=== PATIENT | female | born 1940 | race Caucasian/White ===

== ENCOUNTER 2020-08-02 08:03 | Emergency (ER) | payer MEDICARE ==
[~2020-08-02] VITALS: Ht 149.9 cm; Wt 53.1 kg
[~2020-08-02 08:03] MED LIST: ASPIR 8181 MG PO; BISOPROLOL FUMAR5 MG PO; FOSAMAX70 MG PO; OSTEO BI-FLEX1 EAC2 PO; ZOCOR20 MG PO
[2020-08-02] MEDS ORDERED: HYDROCODONE/APAP 5MG-325MG TAB PO ONE (08:30)
[2020-08-02] MEDS ORDERED: KETOROLAC TROMETHAMINE 30 MG/ML VIAL IM ONE (08:30)
[2020-08-02] MEDS ORDERED: LIDOCAINE 4% PATCH TP ONE (08:30)
--- NOTE | 2020-08-02 08:43 | Emergency Department Note ---
History of Present Illnes History of Present Illness Chief Complaint: General Medicine Complaints History of Present Illness This is a 80 year old female pt came in via POV for c/o back pain, pt states that pain started on her right thigh and now radiating to the right leg with associated numbness, no unifocal deficits noted, pt uses a walker to ambulate but has a steady gait otherwise. 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 Any updates have been documented here. Past Medical History Recent Fever: No Clinical Suspicion of Infectio: No New/Unexplained Change in Ment: No Past Medical History: Depression, GERD Other Medical History: HIGH CHOLESTEROL, OSTEOPOROSIS, ARTHRITIS Other Surgery: HEMORRHOIDECTOMY,M BREAST BIOPSY Social History Smoking Cessation: Never Smoker Counseling Performed: No Alcohol Use: None Any Illegal Drug Use: No TB Exposure/Symptoms: No Physically hurt or threatened: No Family History Family history of heart diseas: No Other Last Tetanus: 2010 Any Pre-Existing Lines (PICC,: No Review of Systems Review of Systems Constitutional: Reports no symptoms EENTM: Reports no symptoms Cardiovascular: Reports no symptoms Respiratory: Reports no symptoms Gastrointestinal: Reports no symptoms Genitourinary: Reports no symptoms Musculoskeletal: Reports as per HPI, Reports back pain Integumentary: Reports no symptoms Neurological: Reports numbness, Reports paresthesia (right foot) Psychological: Reports no symptoms Endocrine: Reports no symptoms Hematological/Lymphatic: Reports no symptoms Physical Exam Related Data Allergies: Coded Allergies: propoxyphene HCl (Unverified Allergy, Unknown, 08/02/20) propoxyphene napsylate (Unverified Allergy, Unknown, 08/02/20) Triage Vital Signs Vital Signs Date Time Temp Pulse Resp B/P (MAP) Pulse Ox O2 Delivery O2 Flow Rate FiO2 08/02/20 08:11 98.1 82 18 142/73 98 Room Air Vital signs reviewed: Yes Physical Exam CONSTITUTIONAL Constitutional: Present well-developed, Present well-nourished HENT HENT: Present normocephalic, Present atraumatic, Present oropharynx clear/moist, Present nose normal HENT L/R: Present left ext ear normal, Present right ext ear normal EYES Eyes: Reports PERRL, Reports conjunctivae normal NECK Neck: Present ROM normal PULMONARY Pulmonary: Present effort normal, Present breath sounds normal CARDIOVASCULAR Cardiovascular: Present regular rhythm, Present heart sounds normal, Present capillary refill normal, Present normal rate, Present palpable pulses, Present strong pulses (= bilat DP/PT, good cap refill) GASTROINTESTINAL Abdominal: Present soft, Present nontender, Present bowel sounds normal GENITOURINARY Genitourinary: Present exam deferred SKIN Skin: Present warm, Present dry MUSCULOSKELETAL Musculoskeletal: Present ROM normal, Present tenderness (mild tenderness right SI joint area), Present other (SLR + at 45 degrees on right, motor intact) NEUROLOGICAL Neurological: Present alert, Present oriented x 3, Present DTRs normal, Present sensory deficit (slight decr touch sens at right foot); Absent cranial nerve deficit PSYCHOLOGICAL Psychological: Present mood/affect normal, Present judgement normal Assessment & Plan Medical Decision Making MDM sciatica, no trauma/heavy lifting - saw PCP at [facility] and has appt with spine MD at [facility] in ~ 2wks - pain control, F/U Reassessment Reassessment DC home, Lidoderm patches, Medrol dose severiano, pt also has Meloxicam & Gabapentin, RTED prn, discussed sx's of cauda equina etc Assessment & Plan Final Impression: (1) Sciatica Depart Disposition: HOME, SELF-CARE Last Vital Signs Date Time Temp Pulse Resp B/P (MAP) Pulse Ox O2 Delivery O2 Flow Rate FiO2 08/02/20 08:11 98.1 82 18 142/73 98 Room Air Home Meds Reported Medications Glucosamine/D3/Boswellia Susan (OSTEO BI-FLEX CAPLET) 1 Each Tablet, 2 TAB PO DAILY 03/22/13 Aspirin (ASPIR 81) 81 Mg Tablet.dr, 81 MG PO DAILY 03/22/13 Alendronate Sodium (FOSAMAX) 70 Mg Tablet, 70 MG PO WEEKLY 03/22/13 Simvastatin (ZOCOR) 20 Mg Tablet, 40 MG PO BEDTIME 03/22/13 Bisoprolol Fumarate (BISOPROLOL FUMARATE) 5 Mg Tablet, 2.5 MG PO BEDTIME 03/22/13 Medications in the ED Ketorolac Tromethamine 30 mg ONCE ONCE IM ; Start 08/02/20 at 08:30; Stop 08/02/20 at 08:32; Status DC Acetaminophen/ Hydrocodone Bitart 1 ea ONCE ONCE PO ; Start 08/02/20 at 08:30; Stop 08/02/20 at 08:33; Status DC Lidocaine 1 ea NOW ONCE TP ; Start 08/02/20 at 08:30; Stop 08/02/20 at 08:32; Status DC TRICIA MEDRANO MD Aug 02, 2020 08:43
--- OUTSIDE RECORDS SUMMARY | 2020-08-03 19:29 | XMS REPORT | Clinical Summary ---
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 Name Role Phone Parag Anderson MD PCP Allergies Not on File Medications Not on file Active Problems Not on file Social History Date Tobacco Use Types Packs/Day Years Used Never Assessed Sex Assigned at Date Recorded Not on file Last Filed Vital Signs Not on file Plan of Treatment Health Maintenance Due Date Last Done Comments SHINGLES VACCINES (#1) 1991 65+ PNEUMOCOCCAL VACCINE 2006 (1 of 1 - PPSV23) INFLUENZA VACCINE 04/29/2020 Results Not on fileafter 08/02/2019 Insurance Type Payer Benefit Subscriber ID Effective Phone Address Plan / Dates Group Commercial AARP AARP [id number] 2016-P SUPPLEMENT resent Medicare MEDICARE MEDICARE [id number] 2006-P FIONA, PART A AND resent [place] B Advance Directives For more information, please contact: [phone] Patient Shareholder Explanation Type Date Recorded Advance Directives, Living Will and 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
== END 2020-08-02 10:36 | disposition home or self-care (01) ==
LOC: ER 08:15
DX: M54.41 Lumbago with sciatica, right side (principal); K21.9 Gastro-esophageal reflux disease without esophagitis; F32.9 Major depressive disorder, single episode, unspecified; E78.00 Pure hypercholesterolemia, unspecified
CPT/HCPCS: 99283; J1885

== ENCOUNTER 2020-12-16 10:06 | Emergency (ER) | payer MEDICARE ==
[~2020-12-16] VITALS: Ht 149.9 cm; Wt 53.1 kg
[2020-12-16] MEDS ORDERED: HYDROCODONE/APAP 5MG-325MG TAB PO ONE (10:45)
[2020-12-16] MEDS ORDERED: LIDOCAINE 4% PATCH TP ONE (12:30)
[2020-12-16] MEDS ORDERED: KETOROLAC TROMETHAMINE 60 MG/2 ML VIAL IM NR (12:30)
== END 2020-12-16 13:50 | disposition home or self-care (01) ==
LOC: ER 10:18
DX: M54.6 Pain in thoracic spine (principal); M54.5 Low back pain; W01.0XXA Fall on same level from slipping, tripping and stumbling without subsequent striking against object, initial encounter; Y93.01 Activity, walking, marching and hiking; Y92.008 Other place in unspecified non-institutional (private) residence as the place of occurrence of the external cause; I10 Essential (primary) hypertension; F32.9 Major depressive disorder, single episode, unspecified; K21.9 Gastro-esophageal reflux disease without esophagitis; E78.00 Pure hypercholesterolemia, unspecified
CPT/HCPCS: 71111; 99283; J1885

== ENCOUNTER 2022-04-25 19:34 | Emergency (ER) | payer MEDICARE ==
[~2022-04-25] VITALS: Ht 160 cm; Wt 59.0 kg
[2022-04-25] MEDS ORDERED: EYE IRRIGATION (OPTH) 120 ML BTL OP ONE (20:00)
[2022-04-25] MEDS ORDERED: TETRACAINE HCL 0.5% OPTH SOLN 4 ML BTL ONE (20:22)
[2022-04-25] MEDS ORDERED: TOBRAMYCIN 0.3% OPTH OINT 3.5 GM TUBE OP ONE (20:30)
== END 2022-04-25 21:00 | disposition home or self-care (01) ==
LOC: ER 19:40
DX: H10.212 Acute toxic conjunctivitis, left eye (principal); I10 Essential (primary) hypertension; K21.9 Gastro-esophageal reflux disease without esophagitis; E78.00 Pure hypercholesterolemia, unspecified
CPT/HCPCS: 99282